=== PATIENT | female | born 1945 | race Caucasian/White ===

== ENCOUNTER → 2016-04-15 | Outpatient (CLI) | payer MEDICARE, OTHER ==
[~2016-04-15] MED LIST: REGADENOSON 0.4 MG/5 ML DISP.SYRIN. IV ONE
--- NOTE | 2016-04-15 13:35 | RAD ---
APPROVED REPORT Test Type: Pharmacological Stress Nurse/Tech: Rosa Conner R.N. Test Indications: chest pain Cardiac History: htn, smoker Medications: htn meds Resting ECG: SR Resting Heart Rate: 57 bpm Resting Blood Pressure: 145/75mmHg Pretest Chest Pain: No chest pain Nurse/Tech Notes lungs cta, heart tones regular, good pulse Consent: The procedure was explained to the patient in lay terms. Informed consent was witnessed. Sedrick eout was entered into [employer]. History and Stress Test performed by Rosa Conner R.N. Pharm. Details Pharmacologic stress testing was performed using 0.4mg per 5ml of regadenoson given intravenously ove r 7-10 seconds. Stress Symptoms No chest pain or symptoms. POST EXERCISE Reason for Termination: Infusion complete Target HR: No Max HR: 106 bpm Max Blood Pressure: 155/81mmHg Chest Pain: No. INTERPRETATION Stress EKG Conclusion: The resting EKG showed a sinus rhythm, an incomplete right bundle branch block and mild nonspecific ST segment changes. The stress EKG showed mild further ST changes in the abnormal leads but is not diagnostic of ischemia . Mildly abnormal baseline and stress EKG that is not diagnostic of ischemia. Imaging Protocol IMAGE PROTOCOL: Rest Tc-99m/stress Tc-99m 1 day Rest: Stress: Viability: Radiopharm.Tc99m ObzcblcioUf29i Sestamibi Ecgc18tSk 35.5mCi Duration 15min. 10min. Img Date 04/15/2016 04/15/2016 Inj-Img [id number]. 60min. Rest Admin Site:IV - Left AntecubitalAdministrator:RT Heriberto (R)(N) Stress Admin Site: IV - Left AntecubitalAdministrator: RICKY Moctezuma STRESS DATA End Diast. Vol.61.0mlAv. Heart Rate70.0bpm End Syst. Vol.17.0mlCO Index BSA0.0L/min Myocardial Qpiq758.0gEject. Juztawmz11.0% Stress Rates Pk. Fill Rate3.56EDV/secLVtime Pk. Fill 252.26msec Pk. Empty Rate3.41ESV/secLVtime Pk. Pylsk138.05msec 1/3 Pk. Fill1.02EDV/sec Stress Scores Regional WT0.00Summed WT0.00 Regional WM0.00Summed WM3.00 LV Perfusion The stress scans showed no significant defects. The rest scans showed no significant defects. Nuclear imaging shows no reversible ischemia or infarct. Wall Motion Left ventricular systolic function is normal with an ejection fraction of greater than 70% and a TID of 1.0 LV Perf. Quant 17 Seg. SSS0.00 17 Seg. SRS0.00 17 Seg. SDS0.00 Stress Defect Extent (% LAD)0.00Rest Defect Extent (% LAD)0.00Rev. Defect Extent (% LAD)0.00 Stress Defect Extent (% LCX) 0.00Rest Defect Extent (% LCX)0.00Rev. Defect Extent (% LCX)0.00 Stress Defect Extent (% RCA)0.00Rest Defect Extent (% RCA)0.00Rev. Defect Extent (% RCA)0.00 Stress Defect Extent (% RYNE)0.00Rest Defect Extent (% RYNE)0.00Rev. Defect Extent (% RYNE)0.00 Conclusion 1. Mildly abnormal baseline and stress EKG that is not diagnostic of ischemia. 2. Nuclear imaging shows no reversible ischemia or infarct. 3. Normal left ventricular systolic function with an ejection fraction of greater than 70%. 4. Moderately low risk Lexiscan nuclear stress test.
== END | disposition home or self-care (01) ==
LOC: NM 08:54
PROVIDERS: ATTEND Internal Medicine Cardiovascular Disease
DX: R07.9 Chest pain, unspecified (principal)
CPT/HCPCS: 78452; 93017; 96374; A9500; J2785; 96376

== ENCOUNTER → 2018-06-13 | Outpatient (CLI) | payer MEDICARE, OTHER ==
--- NOTE | 2018-06-13 15:33 | RAD ---
Examination: CT LOW DOSE LUNG SCREENING History: SCREEN FOR LUNG CA. 60 pack-year smoking history Comparison/Correlation: None Findings: Axial images of chest were obtained without contrast. Sagittal and coronal reformatted images were provided. Imaging was performed according to low-dose lung cancer screening CT protocol. Minimal left basilar linear atelectasis is present. Calcified granuloma involves the right upper lung laterally. At the medial right apex, there are 2 nodules which measure combined 0.4 cm. Small calcified granulomas at the lateral aspect of the right upper lobe at the mid thoracic level are present. Few noncalcified or possibly partially calcified nodules involve the right middle lobe at the basilar aspect and these are best seen on axial images 183 through 190. These measure less than 0.5 cm diameter each. No dominant mass identified. No pleural effusion. No suspicious infiltrate. Tracheobronchial tree is unremarkable. No enlarged thoracic lymph nodes. Significant calcification involving the right coronary artery, left anterior descending coronary artery and a diagonal coronary artery noted. Partially visualized upper abdomen is unremarkable. Impression: Lungs rads category 2-benign. Annual low-dose lung cancer screening CT examination is recommended. PQRS Compliance Statement: One or more of the following individualized dose reduction techniques were utilized for this examination: 1. Automated exposure control 2. Adjustment of the mA and/or kV according to patient size 3. Use of iterative reconstruction technique Electronically signed by: Ok Leong MD (06/13/2018 3:30 PM) [id number]
== END | disposition home or self-care (01) ==
LOC: CT 14:18
PROVIDERS: ATTEND Family Medicine
DX: Z12.2 Encounter for screening for malignant neoplasm of respiratory organs (principal); I25.10 Atherosclerotic heart disease of native coronary artery without angina pectoris; J84.10 Pulmonary fibrosis, unspecified; J98.11 Atelectasis; Z87.891 Personal history of nicotine dependence
CPT/HCPCS: G0297

== ENCOUNTER → 2020-07-31 | Outpatient (CLI) | payer MEDICARE ==
--- NOTE | 2020-07-31 12:36 | RAD ---
EXAM: Low dose lung cancer screening chest CT. HISTORY: Lung cancer screening. Smoking. Smoking history. TECHNIQUE: Computed tomographic images of the chest were obtained without contrast. Multiplanar refor matting was performed. *One or more of the following individualized dose reduction techniques were utilized for this examina tion: 1. Automated exposure control. 2. Adjustment of the mA and/or kV according to patient size. 3. Use of iterative reconstruction technique. COMPARISON: None. FINDINGS: The heart is upper normal in size. There is calcified atherosclerotic plaque involving the aorta, aortic great vessels and coronary arteries. No pathologically enlarged lymph node is seen. The re is no pneumothorax or pleural effusion. There is biapical pleural parenchymal scarring with nodula r pleural thickening and subpleural bleb formation. There is linear atelectasis and scarring within t he right middle lobe and lingula. There are several bilateral predominantly peripheral and pleural based nodules within both lungs. For reference purposes, the largest nodule on the right is a pleural-based nodule within the lateral rig ht upper lobe measuring 7 mm (series 2, image 67). This appears to be separate from adjacent right ap ical nodularity due to pleural parenchymal scarring. The largest nodules on the left measures 3 mm. T here is no acute finding involving the upper abdomen or osseous structures. IMPRESSION: 1. Multiple small bilateral pulmonary nodules, the majority of which are peripheral and pleural-based and the largest of which measures 7 mm within the right upper lobe. The are superimposed on biapical predominant pleural parenchymal scarring. Lung RADS category 3:6 month follow-up is recommended. 2. No acute thoracic finding. Electronically signed by: Ольга Sierra MD (07/31/2020 12:33 PM) [id number]
== END ==
LOC: CT 10:05
PROVIDERS: ATTEND Physician Assistant
DX: R91.1 Solitary pulmonary nodule (principal); I10 Essential (primary) hypertension; F17.210 Nicotine dependence, cigarettes, uncomplicated; Z80.1 Family history of malignant neoplasm of trachea, bronchus and lung
CPT/HCPCS: 71271